=== PATIENT | male | born 1975 | race Caucasian/White ===

== ENCOUNTER 2017-07-07 09:02 | Emergency (ER) | payer OTHER ==
[2017-07-07 09:08] VITALS: BP 124/93; PULSE 93; TEMP 99.6; BMI 34.0
[2017-07-07] MEDS ORDERED: ALBUTEROL SO4 2.5/IPRATROPIUM 0.5 INH SOL 3 ML VIAL.NEB. NEB ONE (09:38)
--- NOTE | 2017-07-07 10:31 | PDOC ---
History of Present Illness - General Chief Complaint: Respiratory Stated Complaint: COUGH,FEVER Time Seen by Provider: 07/07/17 09:28 History Source: Patient Exam Limitations: No Limitations - History of Present Illness Initial Comments: 07/07/17 16:12 Patient is a [41-year-old male, history of hypertension and non-insulin- dependent diabetes presents with fever, cough, headache and body aches for 2 days. with same symptoms.] Allergies: No known allergies Medications: [See medication list] Family History: Non-contributory Social History: Denies smoking, alcohol use, or IVDU Vital signs on arrival are [notable for pulse of 96.] Review of Systems GENERAL/CONSTITUTIONAL: [Fever and bodyaches. No weakness. No weight change.] HEAD, EYES, EARS, NOSE AND THROAT: [No change in vision. No ear pain or discharge. No sore throat. ] CARDIOVASCULAR: [No chest pain or shortness of breath.] RESPIRATORY: [Moist cough, no wheezing, or hemoptysis.] GASTROINTESTINAL: [No nausea, vomiting, diarrhea or constipation. No rectal bleeding.] GENITOURINARY: [No dysuria, frequency, or change in urination.] MUSCULOSKELETAL: [No joint or muscle swelling or pain. No neck or back pain.] SKIN AND BREASTS: [No rash or easy bruising.] NEUROLOGIC: [No headache, vertigo, loss of consciousness, or loss of sensation.] PSYCHIATRIC: [No depression or anxiety.] ENDOCRINE: [No increased thirst. No abnormal weight change.] HEMATOLOGIC/LYMPHATIC: [No anemia, easy bleeding, or history of blood clots.] ALLERGIC/IMMUNOLOGIC: [No hives or skin allergy. No latex allergy.] Physical Exam: GENERAL: [The patient is awake, alert, and fully oriented, in no acute distress. ] EYES: [Pupils equal, round and reactive to light, extraocular movements intact, sclera anicteric, conjunctiva clear.] ENT: [Ears normal, nares patent, oropharynx clear without exudates. Moist mucous membranes. No uvula deviation] NECK: [Normal range of motion, supple without lymphadenopathy, JVD, or masses.] LUNGS: [Rhonchi bilaterally, cleared with cough no wheezing no crackles bronchospasm] HEART: [Regular rate and rhythm, normal S1 and S2 without murmur, rub or gallop. ] ABDOMEN: [Soft, nontender, normoactive bowel sounds. No guarding, no rebound. No masses. No bruising or abrasions] MUSCULOSKELETAL: [Normal range of motion, no edema. No clubbing or cyanosis. No cords, erythema, or tenderness. No CVA Tenderness with fist.] NEUROLOGICAL: [Cranial nerves II through XII grossly intact. Normal speech, normal gait.] SKIN: [Warm, Dry, normal turgor, no rashes or lesions noted.] Past History - Past Medical History Allergies/Adverse Reactions: Allergies Allergy/AdvReac Type Severity Reaction Status Date / Time No Known Allergies Allergy Verified 07/07/17 09:04 Home Medications: Ambulatory Orders Azithromycin [Zithromax 250mg Tablets -] 250 mg PO UTDICT #6 tab 07/07/17 Enalapril Maleate [Vasotec -] 5 mg PO DAILY 07/07/17 Oseltamivir Phosphate [Tamiflu -] 75 mg PO BID #10 capsule 07/07/17 Sitagliptin Phos/Metformin HCl [Janumet 50-1,000 mg Tablet] 1 each PO ASDIR 09/18 COPD: No Diabetes: Yes HTN: Yes - Immunization History Immunization Up to Date: No - Suicide/Smoking/Psychosocial Hx Smoking History: Never smoked Hx Alcohol Use: No Drug/Substance Use Hx: No *Physical Exam - Vital Signs Last Vital Signs Temp Pulse Resp BP Pulse Ox 99.6 F 93 H 18 124/93 95 07/07/17 09:04 07/07/17 09:04 07/07/17 09:04 07/07/17 09:04 07/07/17 09:04 ED Treatment Course - ADDITIONAL ORDERS Additional order review: 07/07/17 09:37 Influenza Types A,B Antigen (BRAYAN) - Final Nasopharyngeal Swab - Final - Medications Given in the ED: ED Medications Discontinued Medications Generic Name Dose Route Start Last Admin Trade Name Freq PRN Reason Stop Dose Admin Albuterol/Ipratropium 1 amp 07/07/17 09:38 07/07/17 09:46 Duoneb - NEB 07/07/17 09:39 1 amp ONCE ONE Administration Medical Decision Making - Medical Decision Making 07/07/17 16:13 A/P: Patient with influenza-type illness, rapid influenza sent patient positive for influenza B will DC on azithromycin patient with rhonchi bilaterally and Tamiflu, supportive care, increase fluids, alternate Motrin and Tylenol as needed for fever. I discussed the physical exam findings, ancillary test results and final diagnoses with the patient. I answered all of the patient's questions. The patient was satisfied with the care received and felt comfortable with the discharge plan and treatment plan. The patient will call to arrange follow-up and will return to the Emergency Department with any new, persistent or worsening symptoms. *DC/Admit/Observation/Transfer Diagnosis at time of Disposition: Influenza - Discharge Dispostion Disposition: HOME Condition at time of disposition: Stable Admit: No - Prescriptions Prescriptions: Azithromycin [Zithromax 250mg Tablets -] 250 mg PO UTDICT #6 tab Oseltamivir Phosphate [Tamiflu -] 75 mg PO BID #10 capsule - Referrals Referrals: Melquiades Keyes MD [Primary Care Provider] - - Patient Instructions Printed Discharge Instructions: Influenza Additional Instructions: You have been diagnosed with influenza b. Please take the medication as directed. You are contagious. Please attempt to avoid contact of multiple individuals as this will cause the infection to spread. Return to emergency room if shortness of breath, wheezing, fever greater than 101, chest pain, or fainting occurs. - Post Discharge Activity Forms/Work/School Notes: Back to Work
== END 2017-07-07 10:38 | disposition home or self-care (01) ==
LOC: JERFT 09:02
PROC: 3E0F7GC Introduction of Other Therapeutic Substance into Respiratory Tract, Via Natural or Artificial Opening (ICD-10-PCS; principal; 2017-07-07)
DX: J10.1 Influenza due to other identified influenza virus with other respiratory manifestations (principal); I10 Essential (primary) hypertension; E11.9 Type 2 diabetes mellitus without complications; Z79.84 Long term (current) use of oral hypoglycemic drugs
CPT/HCPCS: 87804; 94640; 99281-25

== ENCOUNTER 2018-11-23 14:30 | Emergency (ER) | payer OTHER ==
[2018-11-23 14:42] VITALS: BP 153/91; PULSE 85; TEMP 98.1; BMI 34.0
--- NOTE | 2018-11-23 15:04 | PDOC ---
History of Present Illness - General Chief Complaint: Pain Stated Complaint: RT. KNEE PAIN Time Seen by Provider: 11/23/18 14:48 History Source: Patient Exam Limitations: No Limitations Past History - Travel Traveled outside of the country in the last 30 days: No Close contact w/someone who was outside of country & ill: No - Past Medical History Allergies/Adverse Reactions: Allergies Allergy/AdvReac Type Severity Reaction Status Date / Time No Known Allergies Allergy Verified 11/23/18 14:42 Home Medications: Ambulatory Orders Enalapril Maleate [Vasotec -] 5 mg PO DAILY 07/07/17 Sitagliptin Phos/Metformin HCl [Janumet 50-1,000 mg Tablet] 1 each PO ASDIR 09/18 Acetaminophen [Tylenol -] 1,000 mg PO Q6H #30 tablet 11/23/18 Crutch 1 each MC ASDIR #2 each 11/23/18 COPD: No Diabetes: Yes HTN: Yes - Immunization History Immunization Up to Date: No - Suicide/Smoking/Psychosocial Hx Smoking History: Never smoked Hx Alcohol Use: No Drug/Substance Use Hx: No Review of Systems - Review of Systems Able to Perform ROS?: Yes Comments:: 11/23/18 15:03 CONSTITUTIONAL: Absent: fever, chills, diaphoresis, generalized weakness, malaise, loss of appetite MUSCULOSKELETAL: Present: R knee pain Absent: myalgia, arthralgia, joint swelling SKIN: Absent: rash, itching, pallor NEUROLOGIC: Absent: headache, focal weakness or paresthesias, dizziness, unsteady gait, seizure, mental status changes, bladder or bowel incontinence PSYCHIATRIC: Absent: anxiety, depression, suicidal or homicidal ideation, hallucinations. Is the patient limited [place] proficient: No *Physical Exam - Vital Signs Last Vital Signs Temp Pulse Resp BP Pulse Ox 98.1 F 85 18 153/91 99 11/23/18 14:39 11/23/18 14:39 11/23/18 14:39 11/23/18 14:39 11/23/18 14:39 - Physical Exam Comments: 11/23/18 15:04 GENERAL: The patient is awake, alert, and fully oriented, in no acute distress. HEAD: Normal with no signs of trauma. EYES: Pupils equal, round and reactive to light, extraocular movements intact, sclera anicteric, conjunctiva clear. EXTREMITIES: R knee with superior effusion laterally and medially. Negative pierre's draw, posterior draw, valgus/varus stressing, laureano's testing. Normal range of motion, no edema. NEUROLOGICAL: Normal speech, normal gait. PSYCH: Normal mood, normal affect. SKIN: Warm, Dry, normal turgor, no rashes or lesions noted. Medical Decision Making - Medical Decision Making 11/23/18 15:55 the patient is a 42-year-old male past medical history of hypertension, diabetes , who presents to the ER with 4 days of right knee pain. The patient states he was walking when the pain started. He states that it hurts to bear weight on the leg. Denies falling or twisting injury. No gout history. Denies fevers, chills, numbness and tingling and weakness to the affected extremity. A/P: Right knee effusion On exam patient with a superior medial and lateral knee effusion on the right side. Negative special testing of the right knee. Skin color and temperature are normal. PMS is intact. We will discharge with an Judson wrap, Tylenol for some somatic relief. Ortho follow-up given. Discharge home I discussed the physical exam findings, ancillary test results and final diagnoses with the patient. I answered all of the patient's questions. The patient was satisfied with the care received and felt comfortable with the discharge plan and treatment plan. The Patient agrees to follow up with the primary care physician/specialist within 24-72 hours. Return precautions were given. *DC/Admit/Observation/Transfer Diagnosis at time of Disposition: Knee effusion, right - Discharge Dispostion Disposition: HOME Condition at time of disposition: Stable Decision to Admit order: No - Referrals Referrals: Melquiades Keyes MD [Primary Care Provider] - Jovan Gtz DO [Staff Physician] - - Patient Instructions Printed Discharge Instructions: DI for Knee Effusion Additional Instructions: you have a knee effusion or fluid collection around the knee. Please ice the area for 20 minute intervals. Wear the Judson wrap for comfort. You may use the crutches to help you walk as needed. Follow up with orthopedics. A referral has been provided. Return to the ER for worsening pain, numbness and tingling down the extremity, or if you have any changes in your symptoms. - Post Discharge Activity Forms/Work/School Notes: Back to Work
[2018-11-23] MEDS ORDERED: ACETAMINOPHEN 325 MG TABLET (FP) PO ONE (15:12)
[2018-11-23] MEDS ORDERED: ACETAMINOPHEN 500 MG TABLET (FP) ONE (15:14)
== END 2018-11-23 16:07 | disposition home or self-care (01) ==
LOC: JERFT 14:30
DX: M25.461 Effusion, right knee (principal); I10 Essential (primary) hypertension; E11.9 Type 2 diabetes mellitus without complications; Z79.84 Long term (current) use of oral hypoglycemic drugs
CPT/HCPCS: 73562-TC-RT-FY; 99282-25